=== PATIENT | male | born 1990 | race Caucasian/White ===

== ENCOUNTER 2022-03-17 21:08 | Emergency (ER) | payer MEDICAID ==
[~2022-03-17] VITALS: Ht 172.7 cm; Wt 91.0 kg
[2022-03-17] MEDS ORDERED: LORAZEPAM 2MG/ML CPJ IV STA (21:42)
[2022-03-17] MEDS ORDERED: SODIUM CHLORIDE 0.9% 1,000 ML IV ONE (21:45)
[2022-03-17 22:52] LABS: CLARITY URINE CLEAR (CLEAR); COLOR URINE YELLOW (YELLOW); KETONES URINE TRACE (NEGATIVE); LEUKOCYTE ESTERASE URINE NEGATIVE (NEGATIVE); NITRITE URINE NEGATIVE (NEGATIVE); OCCULT BLOOD URINE NEGATIVE (NEGATIVE); PROTEIN URINE 1+ (NEGATIVE); SPECIFIC GRAVITY URINE 1.014 (1.005-1.030); UROBILINOGEN URINE 0.2 E.U./dL (0.2-1.0)
[2022-03-17 22:58] LABS: HEMATOCRIT. 41.8 % (42.0-52.0); HEMOGLOBIN. 13.9 g/dL (14.0-18.0); MEAN CORPUSCULAR HEMOGLOBIN 30.1 pg (28.0-32.0); MEAN CORPUSCULAR VOLUME 90.4 fL (80.0-94.0); MEAN PLATELET VOLUME 7.4 fl (7.4-10.4); PLATELET 381 x1000/uL (130-400); RED BLOOD CELL COUNT 4.62 mill/uL (4.7-6.1); RED CELL DISTRIBUTION WIDTH 14.4 % (11.6-14.6)
[2022-03-17 23:14] LABS: CHLORIDE 107 mEq/L (98-107)
[2022-03-17 23:18] LABS: *AMPHETAMINES SCREEN URINE PRESUMTIVE POSITIVE (NEGATIVE); *BARBITURATES SCREEN URINE NEGATIVE (NEGATIVE); *BENZODIAZEPINES SCREEN URINE NEGATIVE (NEGATIVE); *COCAINE SCREEN URINE NEGATIVE (NEGATIVE); CANNABINOID URINE SCREEN NEGATIVE (NEGATIVE); METHADONE URINE SCREEN NEGATIVE (NEGATIVE); OPIATES URINE SCREEN NEGATIVE (NEGATIVE); PHENCYCLIDINE URINE SCREEN NEGATIVE (NEGATIVE)
[2022-03-17 23:26] LABS: PLATELET ESTIMATE NORMAL
[2022-03-17 23:31] LABS: CREATINE KINASE 774 IU/L (39-308); ETHANOL BLOOD < 10 mg/dL
[2022-03-18] MEDS ORDERED: SODIUM CHLORIDE 0.9% 1,000 ML IV ONE (00:15)
[2022-03-18 05:00] VITALS: BP 140/87
== END 2022-03-18 05:10 | disposition home or self-care (01) ==
LOC: ER 21:08 → EDBD 21:08 → ER 03-18 05:10
DX: T43.651A Poisoning by methamphetamines accidental (unintentional), initial encounter (principal); F15.129 Other stimulant abuse with intoxication, unspecified; R61 Generalized hyperhidrosis; R94.31 Abnormal electrocardiogram [ECG] [EKG]; Y92.017 Garden or yard in single-family (private) house as the place of occurrence of the external cause
CPT/HCPCS: 36415; 70450; 71045; 80053; 80305; 80307; 80320; 80329; 81003; 82140; 82550; 84443; 84484; 85025; 93005; 96361; 96374; 99285; J2060; J7030; G0480

== ENCOUNTER 2024-02-11 05:33 | Emergency (ER) | payer MEDICAID ==
[~2024-02-11] VITALS: Ht 180.3 cm; Wt 104.0 kg
[2024-02-11 05:36] VITALS: TEMP 98.6; O2SAT 99
[2024-02-11 07:28] VITALS: BP 126/78; PULSE 64; RESP 16; O2SAT 99
== END 2024-02-11 07:30 ==
LOC: ER 05:33
DX: R45.1 Restlessness and agitation (principal)
CPT/HCPCS: 99283

== ENCOUNTER 2024-03-02 16:23 | Emergency (ER) | payer MEDICAID ==
[~2024-03-02] VITALS: Ht 182.9 cm; Wt 127.0 kg
[2024-03-02] MEDS: ZIPRASIDONE MESYLATE 20MG/VIAL IM ONE (16:47)
[2024-03-02 17:10] LABS: HEMATOCRIT. 39.6 % (42.0-52.0); HEMOGLOBIN. 13.2 g/dL (14.0-18.0); MEAN CORPUSCULAR HEMOGLOBIN 30.5 pg (28.0-32.0); MEAN CORPUSCULAR HGB CONC 33.2 g/dL (31.0-37.0); MEAN CORPUSCULAR VOLUME 91.6 fL (80.0-94.0); MEAN PLATELET VOLUME 7.2 fl (7.4-10.4); PLATELET 320 x1000/uL (130-400); RED BLOOD CELL COUNT 4.32 mill/uL (4.7-6.1); RED CELL DISTRIBUTION WIDTH 13.8 % (11.6-14.6); WHITE BLOOD COUNT 12.3 x1000/uL (4.5-11.0)
[2024-03-02 17:17] LABS: CHLORIDE 109 mEq/L (98-107); POTASSIUM 3.2 mEq/L (3.5-5.1); SODIUM 141 mEq/L (136-145)
[2024-03-02 17:18] LABS: CARBON DIOXIDE 25 mEq/L (21-32)
[2024-03-02 17:19] LABS: CALCIUM 9.4 mg/dL (8.7-10.4)
[2024-03-02 17:23] LABS: CREATININE 1.1 mg/dL (0.6-1.3)
[2024-03-02 17:24] LABS: GLUCOSE 94 mg/dL (70-105); UREA NITROGEN BLOOD 16 mg/dL (9-23)
[2024-03-02 17:25] LABS: ACETAMINOPHEN < 2 ug/mL (10-30)
[2024-03-02 17:37] LABS: ETHANOL BLOOD < 10 mg/dL (<10)
[2024-03-02 17:40] LABS: DIFFERENTIAL COMMENT 1
[2024-03-02] MEDS: POTASSIUM CHLORIDE 20MEQ TABLET SR PO ONE (18:41)
[2024-03-02 19:35] LABS: PLATELET ESTIMATE NORMAL
[2024-03-03 04:55] LABS: ALANINE AMINOTRANSFERASE 48 IU/L (10-49); ASPARTATE AMINOTRANSFERASE 55 IU/L (<34)
[2024-03-03 04:56] LABS: ALBUMIN 3.8 g/dL (3.2-4.8); BILIRUBIN DIRECT 0.5 mg/dL (<=3.0); BILIRUBIN TOTAL 1.4 mg/dL (0.1-1.0); PROTEIN TOTAL 6.1 g/dL (6.0-8.3)
[2024-03-03 07:46] LABS: *AMPHETAMINES SCREEN URINE PRESUMPTIVE POSITIVE (NEGATIVE)
[2024-03-03 07:47] LABS: *BARBITURATES SCREEN URINE NEGATIVE (NEGATIVE); *BENZODIAZEPINES SCREEN URINE NEGATIVE (NEGATIVE); *COCAINE SCREEN URINE NEGATIVE (NEGATIVE); CANNABINOID URINE SCREEN PRESUMPTIVE POSITIVE (NEGATIVE); ECSTASY MDMA SCREEN URINE CONF.TEST INDICATED (NEGATIVE); METHADONE URINE SCREEN NEGATIVE (NEGATIVE); OPIATES URINE SCREEN NEGATIVE (NEGATIVE); PHENCYCLIDINE URINE SCREEN NEGATIVE (NEGATIVE)
[2024-03-03 19:16] VITALS: O2SAT 98
[2024-03-05] MEDS: OLANZAPINE 5MG TABLET ODT PO SCH (09:00)
[2024-03-05 12:30] VITALS: BP 126/73; PULSE 84; RESP 16; TEMP 36.78072; O2SAT 99
[2024-03-05] MEDS ORDERED: OLAN5TAB3 MT (13:13)
== END 2024-03-05 14:02 | disposition home or self-care (01) ==
LOC: ER 16:23
DX: R44.0 Auditory hallucinations (principal); Z98.890 Other specified postprocedural states; Z20.822 Contact with and (suspected) exposure to COVID-19
CPT/HCPCS: 80076; 80305; 80048; 80307; 80329; 80320; 85025; 36415; 96372; 99285; 87426; J3486; G0480

== ENCOUNTER 2024-03-13 04:20 | Emergency (ER) | payer MEDICAID ==
[~2024-03-13] VITALS: Ht 185.4 cm; Wt 104.0 kg
[~2024-03-13 04:20] MED LIST: OLAN5TAB3 MT
[2024-03-13 04:37] VITALS: BP 120/57; PULSE 82; RESP 18; TEMP 98.2; O2SAT 100
== END 2024-03-13 06:57 | disposition home or self-care (01) ==
LOC: ER 04:20
DX: Z00.00 Encounter for general adult medical examination without abnormal findings (principal); Z59.00 Homelessness unspecified; I10 Essential (primary) hypertension; F10.90 Alcohol use, unspecified, uncomplicated; F12.90 Cannabis use, unspecified, uncomplicated; F15.90 Other stimulant use, unspecified, uncomplicated; Y90.9 Presence of alcohol in blood, level not specified
CPT/HCPCS: 99281

== ENCOUNTER 2024-05-29 19:58 | Emergency (ER) | payer MEDICAID, OTHER ==
[~2024-05-29] VITALS: Ht 175.3 cm; Wt 99.0 kg
[2024-05-29 20:03] VITALS: TEMP 36.9; O2SAT 99
[2024-05-29 21:26] LABS: BASOPHILS % 0.4 % (0.0-2.0); HEMATOCRIT. 41.9 % (42.0-52.0); HEMOGLOBIN. 14.2 g/dL (14.0-18.0); LYMPHOCYTES % 7.2 % (20.0-50.0); MEAN CORPUSCULAR HEMOGLOBIN 31.1 pg (28.0-32.0); MEAN CORPUSCULAR HGB CONC 33.8 g/dL (31.0-37.0); MONOCYTES % 2.5 % (2.0-8.0); NEUTROPHILS % 89.9 % (40.0-76.0); PLATELET 503 x1000/uL (130-400); RED BLOOD CELL COUNT 4.56 mill/uL (4.7-6.1); RED CELL DISTRIBUTION WIDTH 13.7 % (11.6-14.6); WHITE BLOOD COUNT 20.5 x1000/uL (4.5-11.0)
[2024-05-29 21:27] LABS: CHLORIDE 109 mEq/L (98-107); POTASSIUM 3.7 mEq/L (3.5-5.1); SODIUM 144 mEq/L (136-145)
[2024-05-29 21:28] LABS: CALCIUM 10.2 mg/dL (8.7-10.4); CARBON DIOXIDE 22 mEq/L (21-32)
[2024-05-29 21:33] LABS: CREATININE 1.3 mg/dL (0.6-1.3); GLUCOSE 94 mg/dL (70-105); UREA NITROGEN BLOOD 15 mg/dL (9-23)
[2024-05-29 21:34] LABS: ETHANOL BLOOD 42 mg/dL (<10)
[2024-05-29] MEDS: SODIUM CHLORIDE 0.9% 1,000 ML IV ONE (22:12)
[2024-05-29] MEDS: LORAZEPAM 2MG/ML INJ IV ONE (22:16)
[2024-05-30 02:00] VITALS: BP 163/88; PULSE 110; RESP 16; O2SAT 97
== END 2024-05-30 02:30 | disposition home or self-care (01) ==
LOC: ER 19:58
DX: R41.82 Altered mental status, unspecified (principal); T43.621A Poisoning by amphetamines, accidental (unintentional), initial encounter; F12.90 Cannabis use, unspecified, uncomplicated; F10.90 Alcohol use, unspecified, uncomplicated; Y92.89 Other specified places as the place of occurrence of the external cause; Y90.9 Presence of alcohol in blood, level not specified; Z79.899 Other long term (current) drug therapy
CPT/HCPCS: 80048; 80320; 82962; 85025; 36415; 96361; 96374; 99285; J2060; J7030; Z7610 ×3; G0480

== ENCOUNTER 2024-07-02 21:48 | Emergency (ER) | payer OTHER ==
[~2024-07-02] VITALS: Ht 175.3 cm; Wt 82.0 kg
[2024-07-02 21:51] VITALS: O2SAT 100
[2024-07-02 23:06] VITALS: BP 127/66; PULSE 82; RESP 18; TEMP 36.7; O2SAT 98
== END 2024-07-03 00:29 | disposition home or self-care (01) ==
LOC: ER 21:48
DX: F10.129 Alcohol abuse with intoxication, unspecified (principal); Y90.9 Presence of alcohol in blood, level not specified
CPT/HCPCS: 99283